=== PATIENT | female | born 1975 | race African-American/Black ===

== ENCOUNTER 2023-04-27 09:15 | Inpatient (IN) | payer MEDICAID, OTHER ==
[~2023-04-27] VITALS: Ht 175.3 cm; Wt 114.6 kg
[~2023-04-27 09:15] MED LIST: ALBU6.7H3 INH; FLUT1BLS11 IH; LEVO750T68 MT; P20 MT
[2023-04-27] MEDS ORDERED: ALBUTEROL (0.083%) 2.5MG/3ML NEB HHN STA (09:23)
[2023-04-27] MEDS ORDERED: IPRATROPIUM BROMIDE (0.02%) 0.5MG/2.5ML NEB HHN STA (09:23)
[2023-04-27 09:41] LABS: BASOPHILS % 0.6 % (0.0-2.0); EOSINOPHILS % 0.5 % (0.0-5.0); HEMATOCRIT. 43.1 % (36.0-48.0); HEMOGLOBIN. 13.6 g/dL (12.0-16.0); LYMPHOCYTES % 20.5 % (20.0-50.0); MEAN CORPUSCULAR HEMOGLOBIN 27.9 pg (28.0-32.0); MEAN PLATELET VOLUME 9.4 fl (7.4-10.4); MONOCYTES % 7.6 % (2.0-8.0); NEUTROPHILS % 70.8 % (40.0-76.0); PLATELET 185 x1000/uL (130-400); RED CELL DISTRIBUTION WIDTH 16.2 % (11.6-14.6)
[2023-04-27 09:49] VITALS: PULSE 75; RESP 24; O2SAT 99
[2023-04-27 09:50] LABS: CHLORIDE 116 mEq/L (98-107)
[2023-04-27] MEDS ORDERED: ENOXAPARIN 80MG/0.8ML SYR SUBCUT ONE (12:15)
[2023-04-27 20:00] VITALS: BP 147/91; PULSE 121; RESP 20; TEMP 98.6
[2023-04-27] MEDS ORDERED: IPRATROPIUM/ALBUTEROL 0.5-3(2.5)MG/3ML NEB HHN PRN (20:54)
[2023-04-27 21:33] VITALS: BP 147/91; PULSE 108; RESP 22; TEMP 97.9
[2023-04-27] MEDS: CARVEDILOL 3.125 MG TABLET PO SCH (22:07)
[2023-04-28] VITALS (7 sets, daily range): BP systolic 103–142; BP diastolic 52–90; PULSE 92–105; RESP 17–29; TEMP 97.9–98.3; O2SAT 98
[2023-04-28 01:06] LABS: HEPATITIS B SURFACE ANTIGEN NEGATIVE
[2023-04-28] MEDS ORDERED: FUROSEMIDE 40MG/4 ML UDC PO SCH (06:00)
[2023-04-28] MEDS: ENOXAPARIN 30MG/0.3ML SYR SUBCUT SCH ×2 (10:29→21:51)
[2023-04-28] MEDS: LOSARTAN POTASSIUM 50 MG TABLET PO SCH (10:29)
[2023-04-28] MEDS: CARVEDILOL 3.125 MG TABLET PO SCH ×2 (10:29→21:50)
[2023-04-28] MEDS: ASPIRIN 81MG TABLET PO SCH (10:29)
[2023-04-28] MEDS: PREDNISONE 20MG TABLET PO SCH (10:30)
[2023-04-28] MEDS: FUROSEMIDE 40MG/4ML VIAL IVP SCH ×2 (10:30→17:09)
[2023-04-28] MEDS: IPRATROPIUM/ALBUTEROL 0.5-3(2.5)MG/3ML NEB HHN SCH (20:23)
[2023-04-28] MEDS: BUDESONIDE 0.5MG/2ML NEB HHN SCH (20:23)
[2023-04-29] VITALS (8 sets, daily range): BP systolic 93–144; BP diastolic 54–89; PULSE 64–101; RESP 18–28; TEMP 97.5–98.2; O2SAT 98
[2023-04-29] MEDS: IPRATROPIUM/ALBUTEROL 0.5-3(2.5)MG/3ML NEB HHN SCH ×3 (01:26→13:46)
[2023-04-29] MEDS: BUDESONIDE 0.5MG/2ML NEB HHN SCH (08:44)
[2023-04-29] MEDS: LOSARTAN POTASSIUM 50 MG TABLET PO SCH (09:04)
[2023-04-29] MEDS: PREDNISONE 20MG TABLET PO SCH (09:04)
[2023-04-29] MEDS: CARVEDILOL 3.125 MG TABLET PO SCH (09:06)
[2023-04-29] MEDS: ASPIRIN 81MG TABLET PO SCH (09:06)
[2023-04-29] MEDS: ENOXAPARIN 30MG/0.3ML SYR SUBCUT SCH (09:07)
[2023-04-29] MEDS: FUROSEMIDE 40MG/4ML VIAL IVP SCH (09:07)
[2023-04-29] MEDS ORDERED: LOSA50TA41 PO (11:52)
[2023-04-29] MEDS ORDERED: FURO-151 MT (11:52)
[2023-04-29] MEDS ORDERED: POTA-354 MT (11:52)
[2023-04-29] MEDS ORDERED: COR3 PO (11:52)
[2023-04-29 12:14] LABS: BASOPHILS % 0.5 % (0.0-2.0); EOSINOPHILS % 1.1 % (0.0-5.0); HEMATOCRIT. 38.6 % (36.0-48.0); HEMOGLOBIN. 12.4 g/dL (12.0-16.0); LYMPHOCYTES % 17.3 % (20.0-50.0); MEAN CORPUSCULAR HEMOGLOBIN 28.1 pg (28.0-32.0); MEAN CORPUSCULAR VOLUME 87.8 fL (81.0-99.0); MONOCYTES % 7.9 % (2.0-8.0); NEUTROPHILS % 73.2 % (40.0-76.0); PLATELET 185 x1000/uL (130-400); RED BLOOD CELL COUNT 4.39 mill/uL (4.2-5.4); RED CELL DISTRIBUTION WIDTH 15.6 % (11.6-14.6)
[2023-04-29 12:31] LABS: CHLORIDE 108 mEq/L (98-107)
== END 2023-04-29 14:00 | disposition home or self-care (01) | DRG 194 ==
LOC: ER 09:15 → 5EST 12:15
PROVIDERS: ADMIT Internal Medicine; ATTEND Internal Medicine
DX: I11.0 Hypertensive heart disease with heart failure (principal); J96.00 Acute respiratory failure, unspecified whether with hypoxia or hypercapnia; E44.1 Mild protein-calorie malnutrition; I50.23 Acute on chronic systolic (congestive) heart failure; E66.9 Obesity, unspecified; Z20.822 Contact with and (suspected) exposure to COVID-19; I27.20 Pulmonary hypertension, unspecified; J81.1 Chronic pulmonary edema; J44.9 Chronic obstructive pulmonary disease, unspecified; R26.2 Difficulty in walking, not elsewhere classified; F17.210 Nicotine dependence, cigarettes, uncomplicated; F14.90 Cocaine use, unspecified, uncomplicated; Z79.899 Other long term (current) drug therapy; Z68.37 Body mass index [BMI] 37.0-37.9, adult
CPT/HCPCS: 36415; 71045; 80048; 80053; 83880; 84484; 85025; 85379; 86803; 87340; 87426; 93005; 93306; 93970; 94640; 99291; J1650; J1940; J7512; J7626